=== PATIENT | male | born 1955 | race Caucasian/White ===

== ENCOUNTER → 2023-05-07 09:18 | Outpatient (REF) | payer OTHER, SELFPAY | LOC: DHCBS HW 09:18 | PROVIDERS: ATTENDING PHYSICIAN Nurse Practitioner | DX: I10 Essential (primary) hypertension (principal); I34.1 Nonrheumatic mitral (valve) prolapse | CPT/HCPCS: 93306 ==

== ENCOUNTER → 2023-07-06 19:57 | Outpatient (REF) | payer OTHER, SELFPAY | LOC: MRI 3T 19:57 | PROVIDERS: ATTENDING PHYSICIAN Physician Assistant; FAMILY PHYSICIAN Nurse Practitioner | DX: M54.16 Radiculopathy, lumbar region (principal) | CPT/HCPCS: 72148 ==

== ENCOUNTER → 2023-10-26 13:51 | Outpatient (REF) | payer OTHER, SELFPAY | LOC: PAVMRI 13:51 | PROVIDERS: ATTENDING PHYSICIAN Physician Assistant Medical; FAMILY PHYSICIAN Nurse Practitioner | DX: M25.511 Pain in right shoulder (principal) | CPT/HCPCS: 73221 ==

== ENCOUNTER 2023-11-26 12:46 | Emergency (ER) | payer OTHER, SELFPAY ==
--- NOTE | 2023-11-26 13:55 | ED.GENMED ---
History of Present Illness
General
Chief Complaint: Musculo-Skeletal Complaint
Time Seen by Provider: 11/26/23 13:25
History of Present Illness
History of Present Illness:
67-year-old male presents the emergency department for evaluation of bilateral left greater than right neck pain, began after playing pickle ball yesterday. Denies any falls or sudden injuries. Denies any upper or lower extremity symptoms. No
dysphagia or headaches. No vision changes.
Past History
Social History
Personal: Single
Review of Systems
Review of Systems
Allergies reviewed?: Yes
All Other Systems: ROS reviewed and negative except as documented in HPI and ROS
Phy Exam
Physical Exam
Physical Exam:
GEN: Well appearing, NAD, WDWN
HEENT: Oral mucosa moist, no scleral icterus
Cardiac: Regular rate
Lung: No respiratory distress, no tachypnea
MSK: No gross deformity or injuries. No midline cervical spine tenderness. There is mild tenderness to the left upper trapezius region, cervical range of motion is limited in all abraham with particular left rotation. Bilateral upper extremity
strength is intact in all abraham and symmetric, no sensory deficits.
Skin: Good color, no pallor or jaundice, no rashes
Neuro: AO x3, moves all extremities freely
Psych: Calm, cooperative
MDM/Problems Addressed
MDM/Problems Addressed:
Patient has no midline bony tenderness or upper extremity radiculopathy, symptoms are most likely attributable to muscular strain in the setting of recent physical exertion. Discussed supportive care, will start muscle relaxants
*Critical Care Note
Total Time (30-74mins, 75-104mins- exclusive of procedures): Not Applicable
ED Attending Note
-
Portions of this chart may have been created with voice recognition software.� Occasional wrong word or��sound alike� substitutions may have occurred due to the inherent limitations of voice recognition software.
Discharge Plan
Departure
Patient Disposition: Home (Routine Discharge)
Date of Disposition: 11/26/23
Time of Disposition: 13:56
Patient with high blood pressure during this ER visit?: No
Discharge Problem:
Cervical paraspinal muscle spasm
Instructions: Muscle Spasm ED
Prescriptions:
New
diazepam 2 mg tablet
2 - 4 mg PO TID PRN (Reason: muscle spasm) Qty: 12 0RF
Referrals:
Anju Devi CRNP [Family Provider] -
Interventions
Interventions:
*Risk Screen - Suicide Last Done: 11/26/23 12:49
*General Assessment Last Done: 11/26/23 12:49
*Neglect/Abuse Screening Last Done: 11/26/23 12:49
*ED COVID-19 Vaccine History Last Done: 11/26/23 12:49
*Nursing Disposition Last Done: 11/26/23 14:24
Discharge Date and Time
Discharge Date/Time: 11/26/23 14:24
Print Language: MONEGASQUE
== END 2023-11-26 14:24 | disposition home or self-care (01) ==
LOC: EMR 12:46
PROVIDERS: EMERGENCY PHYSICIAN Emergency Medicine; FAMILY PHYSICIAN Nurse Practitioner
DX: M62.838 Other muscle spasm (principal)
CPT/HCPCS: 99282

== ENCOUNTER → 2025-01-15 10:40 | Outpatient (REF) | payer OTHER, SELFPAY | LOC: PAVMRI 10:40 | PROVIDERS: ATTENDING PHYSICIAN Neurological Surgery; FAMILY PHYSICIAN Nurse Practitioner | DX: M43.10 Spondylolisthesis, site unspecified (principal); M48.061 Spinal stenosis, lumbar region without neurogenic claudication | CPT/HCPCS: 72148 ==